=== PATIENT | female | born 1970 | race Two or more races ===

== ENCOUNTER 2023-05-26 08:33 | Day surgery (SDC) | payer OTHER ==
[2023-05-25 08:34] VITALS: BMI 32.7
[2023-05-26 11:11] VITALS: RESP 16; TEMP 97.6
[2023-05-26 11:55] VITALS: BP 142/79; PULSE 64
== END 2023-05-26 11:40 | disposition home or self-care (01) ==
LOC: FASU-ENDO 08:33
PROVIDERS: ATTEND Internal Medicine Gastroenterology
PROC: 0DJD8ZZ Inspection of Lower Intestinal Tract, Via Natural or Artificial Opening Endoscopic (ICD-10-PCS; principal; 2023-05-26 10:33)
DX: Z12.11 Encounter for screening for malignant neoplasm of colon (principal); K64.1 Second degree hemorrhoids
CPT/HCPCS: 81025